=== PATIENT | male | born 1970 | race Caucasian/White ===

== ENCOUNTER 2017-07-28 21:51 | Emergency (ER) | payer SELFPAY ==
[~2017-07-28] VITALS: Ht 170.2 cm; Wt 84.0 kg
[~2017-07-28 21:51] MED LIST: NAPR500 PO
[2017-07-28 22:02] VITALS: BP 157/87; PULSE 81; RESP 16; TEMP 98.8; O2SAT 100
--- NOTE | 2017-07-28 22:57 | PD ---
HPI Chief Complaint: Injury Time Seen by Provider: 22:51 Travel History International Travel<30 days: No Contact w/Intl Traveler<30days: No Traveled to known affect area: No History of Present Illness HPI 46 y/o male presents with right ankle pain after he rolled it recently. he states the pain is sharp and severe in nature. Pain is worse with movement. He denies other modifying factors. He denies any other concurrent complaints. He states he has had surgery to that ankle before. He did not black out. [facility] Past Medical History Tetanus Vaccination: < 5 Years Influenza Vaccination: No Past Surgical History Other Surgery: Yes (Ankle) Social History Alcohol Use: No Tobacco Use: Yes (06/13 ppd) Substance Use: No Allergies-Medications (Allergen,Severity, Reaction): Coded Allergies: Penicillins (Verified Allergy, Unknown, 07/28/17) tramadol (Verified Allergy, Unknown, 07/28/17) Reported Meds & Prescriptions Reported Meds & Active Scripts Active Naprosyn (Naproxen) 500 Mg Tab 500 Mg PO BID 7 Days Review of Systems Except as stated in HPI: all other systems reviewed are Neg Physical Exam Narrative General: 46 y/o patient in no apparent distress Skin: trauma noted to right ankle with swelling Eyes: Pupils equal ENT: no septal hematoma NECK: no pain with ROM in midline Cardiovascular: Regular rate and rhythm Respiratory: normal respiratory effort noted Extremities: Pain with palpation of right ankle, no lacerations over, neurovascularly intact, no pain with rom of other joints Neuro: awake, alert, sensation and motor grossly intact Data Data Last Documented VS Vital Signs Date Time Temp Pulse Resp B/P (MAP) Pulse Ox O2 Delivery O2 Flow Rate FiO2 07/28/17 22:50 16 07/28/17 22:02 98.8 81 157/87 (110) 100 Orders Orders Ankle, Complete ([id number]) (07/28/17 ) Foot, Complete ([id number]) (07/28/17 ) Oxycodone-Acetamin 5-325 Mg (Percocet (07/28/17 23:45) Ed Discharge Order (07/28/17 23:31) MDM Medical Decision Making Medical Screen Exam Complete: Yes Emergency Medical Condition: Yes Medical Record Reviewed: Yes (pmh confirmed) Interpretation(s) Last 24 hours Impressions Foot X-Ray 07/28/17 0000 Signed Impressions: Service Date/Time: Friday, July 28, 2017 23:03 - CONCLUSION: Slight osteopenia. Camille Walker MD Ankle X-Ray 07/28/17 0000 Signed Impressions: Service Date/Time: Friday, July 28, 2017 23:01 - CONCLUSION: Stable examination not significantly changed with postsurgical changes and migration of some of the screws as above and the calcaneal fracture is not completely healed. The tibial pseudoarthrosis is not excluded. Camille Walker MD Differential Diagnosis fracture, strain, hardware fracture.... Narrative Course will check xray and reevaluate xray without emergent findings, will place splint and have follow with his surgeon, patient updated and agrees to plan Diagnosis Primary Impression: Right ankle pain Qualified Codes: M25.571 - Pain in right ankle and joints of right foot Patient Instructions: General Instructions Additional Instructions: tylenol as needed, follow with your surgeon monday as scheduled, return as needed, elevate leg at rest, no weight bearing to right ankle Med/Other Pt SpecificInfo: No Change to Meds Disposition: 01 DISCHARGE HOME Condition: Stable Geeta Peacock MD Jul 28, 2017 22:57
--- NOTE | 2017-07-28 23:25 | RADRPT ---
EXAM DATE/TIME: 07/28/2017 23:01 [facility] COMPARISON: ANKLE RIGHT COMPLETE ([id number]), June 25, 2017, 20:15. INDICATIONS : Pt has previous calcaneal fracture with surgery- Stepped in a hole and now has pain and swelling to l ateral ankle and bottom of foot. MEDICAL HISTORY : None. SURGICAL HISTORY : Right calcaneus ENCOUNTER: Initial ACUITY: 1 day PAIN SCORE: 8/10 LOCATION: Right ankle FINDINGS: Again noted are side plate and multiple screws traversing the calcaneus and the appearance of screws have not changed since the prior examination some of the migrated outside of the bone. There is a fra cture towards the anterior portion of the calcaneus not completely healed at this time. There is also deformity of the detail is not significantly changed with hypertrophic changes and chronic deformity of the distal fibula in addition to talonavicular joint and talocalcaneal joint. Soft tissue swellin g is present diffusely. CONCLUSION: Stable examination not significantly changed with postsurgical changes and migration of some of the s crews as above and the calcaneal fracture is not completely healed. The tibial pseudoarthrosis is not excluded. Camille Walker MD on July 28, 2017 at 23:20 Board Certified Radiologist. This report was verified electronically.
--- NOTE | 2017-07-28 23:27 | RADRPT ---
EXAM DATE/TIME: 07/28/2017 23:03 [facility] COMPARISON: FOOT RIGHT COMPLETE ([id number]), June 25, 2017, 20:15. INDICATIONS : Pt has previous calcaneal fracture with surgery- Stepped in a hole and now has pain and swelling to l ateral ankle and bottom of foot. MEDICAL HISTORY : None. SURGICAL HISTORY : Right calcaneus ENCOUNTER: Initial ACUITY: 1 day PAIN SCORE: 8/10 LOCATION: Right Foot FINDINGS: No definite fractures, or dislocations are identified. No definite lytic or sclerotic lesion is seen . Slight osteopenia is seen. There are post surgical changes involving the calcaneus discussed on e patient's ankle radiograph. CONCLUSION: Slight osteopenia. Camille Walker MD on July 28, 2017 at 23:24 Board Certified Radiologist. This report was verified electronically.
[2017-07-28] MEDS ORDERED: oxyCODONE/ACETAMINOPHEN 5 MG/325 MG TAB PO ONE (23:45)
== END 2017-07-29 00:07 | disposition home or self-care (01) ==
LOC: NEPC 21:51
DX: M25.571 Pain in right ankle and joints of right foot (principal); M85.871 Other specified disorders of bone density and structure, right ankle and foot; F17.200 Nicotine dependence, unspecified, uncomplicated; Z98.890 Other specified postprocedural states; X50.1XXA Overexertion from prolonged static or awkward postures, initial encounter
CPT/HCPCS: 29515; 73610; 73630; 99283; E0113